=== PATIENT | male | born 1975 | race Hispanic/Latino ===

== ENCOUNTER 2019-05-13 01:20 | Emergency (ER) | payer BC, OTHER ==
--- NOTE | 2019-05-13 01:37 | EDM.PDOC ---
ED HPI GENERAL MEDICAL PROBLEM - General Chief Complaint: Chest Pain Stated Complaint: CHEST PAIN Time Seen by Provider: 05/13/19 01:32 - History of Present Illness INITIAL COMMENTS - FREE TEXT/NARRATIVE: HISTORY AND PHYSICAL: History of present illness: Patient 44-year-old male with history of hypertension who is currently not on medication or sensory concern of chest pain this is substernal cytotoxin hour prior to arrival he's had no associated shortness of breath nausea vomiting diaphoresis on arrival patient's blood pressure 213/140. He denies history of prior [place] stroke. Denies fever chills nausea vomiting or other complaints he is a smoker Review of systems: As per history of present illness and below otherwise all systems reviewed and negative. Past medical history: As per history of present illness and as reviewed below otherwise noncontributory. Surgical history: As per history of present illness and as reviewed below otherwise noncontributory. Social history: No reported history of drug or alcohol abuse. Family history: As per history of present illness and as reviewed below otherwise noncontributory. Physical exam: HEENT: Atraumatic, normocephalic, pupils reactive, negative for conjunctival pallor or scleral icterus, mucous membranes moist, throat clear, neck supple, nontender, trachea midline. Lungs: Clear to auscultation, breath sounds equal bilaterally, chest nontender. Heart: S1S2, regular, negative for clicks, rubs, or JVD. Abdomen: Soft, nondistended, nontender. Negative for masses or hepatosplenomegaly. Negative for costovertebral tenderness. Pelvis: Stable nontender. Genitourinary: Deferred. Rectal: Deferred. Extremities: Atraumatic, negative for cords or calf pain. Neurovascular unremarkable. Neuro: Awake, alert, oriented. Cranial nerves II through XII unremarkable. Cerebellum unremarkable. Motor and sensory unremarkable throughout. Exam nonfocal. Diagnostics: CBC CMP troponin PT/INR chest x-ray EKG Therapeutics: IV O2 monitor aspirin 324 mg by mouth IV nitroglycerin drip as directed Impression: #1 chest pain #2 hypertension Definitive disposition and diagnosis as appropriate pending reevaluation and review of above. Middle Chest Pain Score (Numeric/FACES): 10 - Related Data Allergies Allergy/AdvReac Type Severity Reaction Status Date / Time No Known Allergies Allergy Verified 05/13/19 01:23 Home Meds: Home Meds . [No Known Home Meds] 05/13/19 [History] Past Medical History - Past Health History Medical/Surgical History: Denies Medical/Surgical History Psychiatric History: Reports: None - Infectious Disease History Infectious Disease History: Reports: None Social & Family History - Tobacco Use Smoking Status *Q: Current Every Day Smoker Years of Tobacco use: 35 Packs/Tins Daily: 1 - Caffeine Use Caffeine Use: Reports: None - Recreational Drug Use Recreational Drug Use: No ED ROS GENERAL - Review of Systems Review Of Systems: ROS reveals no pertinent complaints other than HPI. ED EXAM, GENERAL - Physical Exam Exam: See Below (See dictation) Course - Vital Signs Last Recorded V/S: Last Vital Signs Temp 36.3 C 05/13/19 02:27 Pulse 102 H 05/13/19 02:27 Resp 20 05/13/19 02:27 BP 189/133 H 05/13/19 02:27 Pulse Ox 94 L 05/13/19 02:27 - Orders/Labs/Meds Orders: Active Orders 24 hr Category Date Time Status EKG 12 Lead [EKG Documentation Completion] [RC] STAT Care 05/13/19 02:17 Active EKG Documentation Completion [RC] STAT Care 05/13/19 01:39 Active UA RFX DORINA AND CULT IF INDIC [URIN] Stat Lab 05/13/19 02:26 Received Nitroglycerin/D5W [Nitroglycerin 25 MG/D5W 250 ML] Med 05/13/19 01:45 Active 25 mg in 250 ml IV TITRATE Sodium Chloride 0.9% [Normal Saline] 1,000 ml Med 05/13/19 01:43 Active IV STAT Saline Lock Insert [OM.PC] Stat Oth 05/13/19 01:39 Ordered Medication Orders Nitroglycerin/Dextrose (Nitroglycerin 25 Mg/D5w 250 Ml) 25 mg in 250 mls @ 6 mls/hr IV TITRATE VERONICA Last Infusion: 05/13/19 02:33 Dose: 30 mcg/min, 18 mls/hr Infusion: 05/13/19 02:10 Dose: 20 mcg/min, 12 mls/hr Admin: 05/13/19 01:58 Dose: 10 mcg/min, 6 mls/hr Sodium Chloride (Normal Saline) 1,000 mls @ 125 mls/hr IV STAT ONE Stop: 05/13/19 09:42 Last Admin: 05/13/19 01:50 Dose: 125 mls/hr Labs: Laboratory Tests 05/13/19 05/13/19 05/13/19 Range/Units 01:23 01:23 01:23 WBC 13.33 H (4.0-11.0) K/uL RBC 6.42 H (4.50-5.90) M/uL Hgb 19.0 H (13.0-17.0) g/dL Hct 54.3 H (38.0-50.0) % MCV 84.6 (80.0-98.0) fL MCH 29.6 (27.0-32.0) pg MCHC 35.0 (31.0-37.0) g/dL RDW Std Deviation 42.7 (28.0-62.0) fl RDW Coeff of Juan 14 (11.0-15.0) % Plt Count 293 (150-400) K/uL MPV 9.60 (7.40-12.00) fL Neut % (Auto) 59.7 (48.0-80.0) % Lymph % (Auto) 24.0 (16.0-40.0) % [place] % (Auto) 11.8 (0.0-15.0) % Eos % (Auto) 4.0 (0.0-7.0) % Baso % (Auto) 0.5 (0.0-1.5) % Neut # (Auto) 8.0 H (1.4-5.7) K/uL Lymph # (Auto) 3.2 H (0.6-2.4) K/uL [place] # (Auto) 1.6 H (0.0-0.8) K/uL Eos # (Auto) 0.5 (0.0-0.7) K/uL Baso # (Auto) 0.1 (0.0-0.1) K/uL Nucleated RBC % 0.0 /100WBC Nucleated RBCs # 0 K/uL INR 0.96 Sodium 138 (136-148) mmol/L Potassium 4.0 (3.5-5.1) mmol/L Chloride 103 (98-107) mmol/L Carbon Dioxide 22.4 (21.0-32.0) mmol/L BUN 20 H (7.0-18.0) mg/dL Creatinine 1.2 (0.8-1.3) mg/dL Est Cr Clr Drug Dosing 61.91 mL/min Estimated GFR (MDRD) > 60.0 ml/min Glucose 128 H (74-106) mg/dL Calcium 9.3 (8.5-10.1) mg/dL Total Bilirubin 0.3 (0.2-1.0) mg/dL AST 35 (15-37) IU/L ALT 51 (14-63) IU/L Alkaline Phosphatase 154 H (46-116) U/L Troponin I 0.954 H* (0.000-0.056) ng/mL Total Protein 7.3 (6.4-8.2) g/dL Albumin 3.3 L (3.4-5.0) g/dL Globulin 4.0 (2.6-4.0) g/dL Albumin/Globulin Ratio 0.8 L (0.9-1.6) Meds: Medications Generic Name Dose Route Start Last Admin Trade Name Freq PRN Reason Stop Dose Admin Nitroglycerin/Dextrose 25 mg in 250 mls @ 6 mls/hr 05/13/19 01:45 05/13/19 02 :33 Nitroglycerin 25 Mg/D5w 250 Ml IV 30 mcg/min TITRATE VERONICA 18 mls/hr Infusion 10 MCG/MIN Sodium Chloride 1,000 mls @ 125 mls/hr 05/13/19 01:43 05/13/19 01:50 Normal Saline IV 05/13/19 09:42 125 mls/hr STAT ONE Administration Discontinued Medications Generic Name Dose Route Start Last Admin Trade Name Freq PRN Reason Stop Dose Admin Aspirin 324 mg 05/13/19 01:39 05/13/19 01:50 Aspirin PO 05/13/19 01:40 324 mg ONETIME ONE Administration Sodium Chloride 1,000 mls @ 125 mls/hr 05/13/19 01:45 Normal Saline IV ASDIRECTED VERONICA Nitroglycerin/Dextrose Confirm 05/13/19 01:53 05/13/19 01:59 Nitroglycerin 25 Mg/D5w 250 Ml Administered 05/13/19 01:54 Not Given Dose 25 mg in 250 mls @ as directed .ROUTE .STK-MED ONE Morphine Sulfate 2 mg 05/13/19 01:39 05/13/19 01:51 Morphine IVPUSH 05/13/19 01:40 2 mg ONETIME ONE Administration Morphine Sulfate 2 mg 05/13/19 02:17 05/13/19 02:19 Morphine IVPUSH 05/13/19 02:18 2 mg ONETIME ONE Administration Morphine Sulfate Confirm 05/13/19 02:18 05/13/19 02:32 Morphine Administered 05/13/19 02:19 Not Given Dose 2 mg .ROUTE .STK-MED ONE Ondansetron HCl Confirm 05/13/19 01:46 05/13/19 01:52 Zofran Administered 05/13/19 01:47 Not Given Dose 4 mg .ROUTE .STK-MED ONE Ondansetron HCl 4 mg 05/13/19 01:46 05/13/19 01:50 Zofran IVPUSH 05/13/19 01:47 4 mg ONETIME ONE Administration Departure - Departure Time of Disposition: 02:34 Disposition: DC/Tfer to Acute Hospital 02 Condition: Serious Clinical Impression: Acute coronary syndrome - Discharge Information Referrals: PCP,None [Primary Care Provider] - Forms: ED Department Discharge - My Orders Last 24 Hours: My Active Orders 05/13/19 01:39 EKG Documentation Completion [RC] STAT Saline Lock Insert [OM.PC] Stat 05/13/19 01:43 Sodium Chloride 0.9% [Normal Saline] 1,000 ml IV STAT 05/13/19 01:45 Nitroglycerin/D5W [Nitroglycerin 25 MG/D5W 250 ML] 25 mg in 250 ml IV TITRATE 05/13/19 02:17 EKG 12 Lead [EKG Documentation Completion] [RC] STAT 05/13/19 02:26 UA RFX DORINA AND CULT IF INDIC [URIN] Stat - Assessment/Plan Last 24 Hours: My Active Orders 05/13/19 01:39 EKG Documentation Completion [RC] STAT Saline Lock Insert [OM.PC] Stat 05/13/19 01:43 Sodium Chloride 0.9% [Normal Saline] 1,000 ml IV STAT 05/13/19 01:45 Nitroglycerin/D5W [Nitroglycerin 25 MG/D5W 250 ML] 25 mg in 250 ml IV TITRATE 05/13/19 02:17 EKG 12 Lead [EKG Documentation Completion] [RC] STAT 05/13/19 02:26 UA RFX DORINA AND CULT IF INDIC [URIN] Stat
[2019-05-13] MEDS ORDERED: Morphine 2 MG/ML Syringe IVPUSH ONE ×2 (01:39→02:17)
[2019-05-13] MEDS ORDERED: Aspirin 81 MG Tab.Chew PO ONE (01:39)
[2019-05-13] MEDS ORDERED: Sodium Chloride 0.9% 1,000 ML IV ONE (01:43)
[2019-05-13] MEDS ORDERED: Sodium Chloride 0.9% 1,000 ML IV SCH (01:45)
[2019-05-13] MEDS ORDERED: Nitroglycerin/D5W 25 MG/250 ML BOTTLE IV SCH (01:45)
[2019-05-13] MEDS ORDERED: Ondansetron 4 MG/2 ML SDV ONE (01:46)
[2019-05-13] MEDS ORDERED: Ondansetron 4 MG/2 ML SDV IVPUSH ONE (01:46)
[2019-05-13] MEDS ORDERED: Nitroglycerin/D5W 25 MG/250 ML BOTTLE ONE (01:53)
--- NOTE | 2019-05-13 01:55 | CR ---
INDICATION: Chest pain TECHNIQUE: Chest 1 view COMPARISON: None FINDINGS: Cardiovascular and mediastinum: Upper normal heart size with mild aortic tortuosity. Lungs and pleural spaces: Lungs are clear. No sign of infiltrate or mass. No sign of pleural effusion. No pneumothorax. Bones and soft tissues: No significant findings. IMPRESSION: No acute or significant findings. Dictated by Elias Kelley MD @ May 13 2019 1:54AM Signed by Dr. Elias Kelley @ May 13 2019 1:54AM
[2019-05-13 02:14] LABS: BLOOD UREA NITROGEN,BUN 20 mg/dL (7.0-18.0); CARBON DIOXIDE,CO2 22.4 mmol/L (21.0-32.0); CHLORIDE,CL 103 mmol/L (98-107); GLUCOSE RANDOM 128 mg/dL (74-106); SODIUM,NA 138 mmol/L (136-148)
[2019-05-13] MEDS ORDERED: Morphine 2 MG/ML Syringe ONE (02:18)
== END 2019-05-13 03:18 ==
LOC: MW.ED 01:20
DX: I24.9 Acute ischemic heart disease, unspecified (principal); I10 Essential (primary) hypertension; F17.210 Nicotine dependence, cigarettes, uncomplicated
CPT/HCPCS: 36415; 71045; 80053; 81003; 84484; 85025; 85610; 93005; 96365; 96374; 96375; 99285; A9270; J2270; J2405; J3490; J7040

== ENCOUNTER 2019-09-01 20:56 | Emergency (ER) | payer BC ==
[2019-09-01] MEDS ORDERED: Albuterol/Ipratropium 3.0-0.5 MG/3 ML Neb Soln NEB ONE (21:03)
[2019-09-01] MEDS ORDERED: Sodium Chloride 0.9% 1,000 ML IV ONE (21:03)
--- NOTE | 2019-09-01 21:17 | EDM.PDOC ---
ED HPI GENERAL MEDICAL PROBLEM - General Chief Complaint: General Stated Complaint: TROUBLE BREATHING/DIZZINESS Time Seen by Provider: 09/01/19 21:16 Source of Information: Reports: Patient - History of Present Illness INITIAL COMMENTS - FREE TEXT/NARRATIVE: HISTORY AND PHYSICAL: History of present illness: [Patient presents with lightheaded sensation, after taking his medication he did check his blood pressure at home and in EMS reading 90/60 however he states this has been his usual blood pressure since starting medication, his last visit on file he was here with chest pain quite elevated blood pressure and elevated troponin resulting in stent placed in mind that Currently he is asymptomatic no fever nausea vomiting chills sweats no chest pain shortness breath headache dizziness palpitation no bowel or urine symptoms lightheaded sensation resolved prior to arrival ] Review of systems: As per history of present illness and below otherwise all systems reviewed and negative. Past medical history: As per history of present illness and as reviewed below otherwise noncontributory. Surgical history: As per history of present illness and as reviewed below otherwise noncontributory. Social history: No reported history of drug or alcohol abuse. Family history: As per history of present illness and as reviewed below otherwise noncontributory. Physical exam: HEENT: Atraumatic, normocephalic, pupils reactive, negative for conjunctival pallor or scleral icterus, mucous membranes moist, throat clear, neck supple, nontender, trachea midline. Lungs: Clear to auscultation, breath sounds equal bilaterally, chest nontender. Heart: S1S2, regular, negative for clicks, rubs, or JVD. Abdomen: Soft, nondistended, nontender. Negative for masses or hepatosplenomegaly. Negative for costovertebral tenderness. Pelvis: Stable nontender. Genitourinary: Deferred. Rectal: Deferred. Extremities: Atraumatic, negative for cords or calf pain. Neurovascular unremarkable. Neuro: Awake, alert, oriented. Cranial nerves II through XII unremarkable. Cerebellum unremarkable. Motor and sensory unremarkable throughout. Exam nonfocal. Diagnostics: [CBC CMP UA troponin EKG Chest 1 view ] Therapeutics: [ normal saline Aspirin Follow-up with Dr. Estes to follow renal function and possible medication adjustment ] Impression: Dehydration Renal insufficiency [ lightheaded/dizzy resolved history of hypertension ] Chronic history of baseline of recent stenting back in May Definitive disposition and diagnosis as appropriate pending reevaluation and review of above. Treatments POST PARTUM NURSE: Reports: IV/IO - Related Data Allergies Allergy/AdvReac Type Severity Reaction Status Date / Time No Known Allergies Allergy Verified 09/01/19 20:59 Home Meds: Home Meds Lisinopril [Prinivil] 0 mg PO DAILY 09/01/19 [History] Metoprolol Succinate [Toprol Xl] 0 mg PO DAILY 09/01/19 [History] Ticagrelor [Brilinta] 0 mg PO DAILY 09/01/19 [History] Past Medical History - Past Health History Medical/Surgical History: Denies Medical/Surgical History Cardiovascular History: Reports: Hypertension Psychiatric History: Reports: None Endocrine/Metabolic History: Reports: Diabetes, Type II - Infectious Disease History Infectious Disease History: Reports: None Social & Family History - Family History Family Medical History: Noncontributory - Tobacco Use Smoking Status *Q: Current Every Day Smoker Years of Tobacco use: 20 Packs/Tins Daily: 1 - Caffeine Use Caffeine Use: Reports: None - Recreational Drug Use Recreational Drug Use: No ED ROS GENERAL - Review of Systems Review Of Systems: See Below ED EXAM, GENERAL - Physical Exam Exam: See Below Course - Vital Signs Last Recorded V/S: Last Vital Signs Temp 96.5 F 09/01/19 20:56 Pulse 99 09/01/19 21:14 Resp 18 09/01/19 21:14 BP 117/73 09/01/19 21:14 Pulse Ox 97 09/01/19 21:14 - Orders/Labs/Meds Orders: Active Orders 24 hr Category Date Time Status EKG Documentation Completion [RC] STAT Care 09/01/19 21:03 Active RT Aerosol Therapy [RC] ASDIRECTED Care 09/01/19 21:04 Active Labs: Laboratory Tests 09/01/19 09/01/19 09/01/19 Range/Units 21:14 21:14 21:30 WBC 12.76 H (4.0-11.0) K/uL RBC 4.57 (4.50-5.90) M/uL Hgb 13.6 (13.0-17.0) g/dL Hct 40.5 (38.0-50.0) % MCV 88.6 (80.0-98.0) fL MCH 29.8 (27.0-32.0) pg MCHC 33.6 (31.0-37.0) g/dL RDW Std Deviation 48.6 (28.0-62.0) fl RDW Coeff of Juan 15 (11.0-15.0) % Plt Count 296 (150-400) K/uL MPV 8.70 (7.40-12.00) fL Neut % (Auto) 69.5 (48.0-80.0) % Lymph % (Auto) 19.0 (16.0-40.0) % [place] % (Auto) 7.4 (0.0-15.0) % Eos % (Auto) 3.8 (0.0-7.0) % Baso % (Auto) 0.3 (0.0-1.5) % Neut # (Auto) 8.9 H (1.4-5.7) K/uL Lymph # (Auto) 2.4 (0.6-2.4) K/uL [place] # (Auto) 0.9 H (0.0-0.8) K/uL Eos # (Auto) 0.5 (0.0-0.7) K/uL Baso # (Auto) 0.0 (0.0-0.1) K/uL Nucleated RBC % 0.0 /100WBC Nucleated RBCs # 0 K/uL Lactate (0.20-2.00) mmol/L Sodium 135 L (136-148) mmol/L Potassium 3.8 (3.5-5.1) mmol/L Chloride 101 (98-107) mmol/L Carbon Dioxide 19.7 L (21.0-32.0) mmol/L BUN 26 H (7.0-18.0) mg/dL Creatinine 1.5 H (0.8-1.3) mg/dL Est Cr Clr Drug Dosing 49.52 mL/min Estimated GFR (MDRD) 50.4 ml/min Glucose 108 H (74-106) mg/dL Calcium 8.3 L (8.5-10.1) mg/dL Total Bilirubin 0.3 (0.2-1.0) mg/dL AST 33 (15-37) IU/L ALT 47 (14-63) IU/L Alkaline Phosphatase 95 (46-116) U/L Troponin I < 0.050 (0.000-0.056) ng/mL Total Protein 6.7 (6.4-8.2) g/dL Albumin 3.1 L (3.4-5.0) g/dL Globulin 3.6 (2.6-4.0) g/dL Albumin/Globulin Ratio 0.9 (0.9-1.6) Urine Color YELLOW Urine Appearance CLEAR Urine pH 6.0 (5.0-8.0) Ur Specific [place] >= 1.030 (1.001-1.035) Urine Protein NEGATIVE (NEGATIVE) mg/dL Urine Glucose (UA) NEGATIVE (NEGATIVE) mg/dL Urine Ketones NEGATIVE (NEGATIVE) mg/dL Urine Occult Blood NEGATIVE (NEGATIVE) Urine Nitrite NEGATIVE (NEGATIVE) Urine Bilirubin NEGATIVE (NEGATIVE) Urine Urobilinogen 0.2 (<2.0) EU/dL Ur Leukocyte Esterase NEGATIVE (NEGATIVE) 09/01/19 Range/Units 21:36 WBC (4.0-11.0) K/uL RBC (4.50-5.90) M/uL Hgb (13.0-17.0) g/dL Hct (38.0-50.0) % MCV (80.0-98.0) fL MCH (27.0-32.0) pg MCHC (31.0-37.0) g/dL RDW Std Deviation (28.0-62.0) fl RDW Coeff of Juan (11.0-15.0) % Plt Count (150-400) K/uL MPV (7.40-12.00) fL Neut % (Auto) (48.0-80.0) % Lymph % (Auto) (16.0-40.0) % [place] % (Auto) (0.0-15.0) % Eos % (Auto) (0.0-7.0) % Baso % (Auto) (0.0-1.5) % Neut # (Auto) (1.4-5.7) K/uL Lymph # (Auto) (0.6-2.4) K/uL [place] # (Auto) (0.0-0.8) K/uL Eos # (Auto) (0.0-0.7) K/uL Baso # (Auto) (0.0-0.1) K/uL Nucleated RBC % /100WBC Nucleated RBCs # K/uL Lactate 2.5 H* (0.20-2.00) mmol/L Sodium (136-148) mmol/L Potassium (3.5-5.1) mmol/L Chloride (98-107) mmol/L Carbon Dioxide (21.0-32.0) mmol/L BUN (7.0-18.0) mg/dL Creatinine (0.8-1.3) mg/dL Est Cr Clr Drug Dosing mL/min Estimated GFR (MDRD) ml/min Glucose (74-106) mg/dL Calcium (8.5-10.1) mg/dL Total Bilirubin (0.2-1.0) mg/dL AST (15-37) IU/L ALT (14-63) IU/L Alkaline Phosphatase (46-116) U/L Troponin I (0.000-0.056) ng/mL Total Protein (6.4-8.2) g/dL Albumin (3.4-5.0) g/dL Globulin (2.6-4.0) g/dL Albumin/Globulin Ratio (0.9-1.6) Urine Color Urine Appearance Urine pH (5.0-8.0) Ur Specific [place] (1.001-1.035) Urine Protein (NEGATIVE) mg/dL Urine Glucose (UA) (NEGATIVE) mg/dL Urine Ketones (NEGATIVE) mg/dL Urine Occult Blood (NEGATIVE) Urine Nitrite (NEGATIVE) Urine Bilirubin (NEGATIVE) Urine Urobilinogen (<2.0) EU/dL Ur Leukocyte Esterase (NEGATIVE) Meds: Medications Discontinued Medications Generic Name Dose Route Start Last Admin Trade Name Isael PRN Reason Stop Dose Admin Albuterol/Ipratropium 3 ml 09/01/19 21:03 09/01/19 21:15 Duoneb 3.0-0.5 Mg/3 Ml NEB 09/01/19 21:04 Not Given ONETIME ONE Aspirin 324 mg 09/01/19 21:21 09/01/19 21:28 Aspirin PO 09/01/19 21:22 324 mg ONETIME ONE Administration Sodium Chloride 1,000 mls @ 999 mls/hr 09/01/19 21:03 09/01/19 21:13 Normal Saline IV 09/01/19 22:03 999 mls/hr STAT ONE Administration Departure - Departure Time of Disposition: 22:07 Disposition: Home, Self-Care 01 Condition: Good Clinical Impression: Dehydration - Discharge Information Referrals: Luke Estes MD [Primary Care Provider] - Forms: ED Department Discharge Additional Instructions: Fluid hydration as discussed Continue current medications however follow-up with Dr. Estes is discussed to repeat lab/recheck renal function occasion adjustment may be required Return if symptoms persist or worsen The following information is given to patients seen in the emergency department who are being discharged to home. This information is to outline your options for follow-up care. We provide all patients seen in our emergency department with a follow-up referral. The need for follow-up, as well as the timing and circumstances, are variable depending upon the specifics of your emergency department visit. If you don't have a primary care physician on staff, we will provide you with a referral. We always advise you to contact your personal physician following an emergency department visit to inform them of the circumstance of the visit and for follow-up with them and/or the need for any referrals to a consulting specialist. The emergency department will also refer you to a specialist when appropriate. This referral assures that you have the opportunity for follow-up care with a specialist. All of these measure are taken in an effort to provide you with optimal care, which includes your follow-up. Under all circumstances we always encourage you to contact your private physician who remains a resource for coordinating your care. When calling for follow-up care, please make the office aware that this follow-up is from your recent emergency room visit. If for any reason you are refused follow-up, please contact the [facility] emergency department at and asked to speak to the emergency department charge nurse. - My Orders Last 24 Hours: My Active Orders 09/01/19 21:03 EKG Documentation Completion [RC] STAT 09/01/19 21:04 RT Aerosol Therapy [RC] ASDIRECTED - Assessment/Plan Last 24 Hours: My Active Orders 09/01/19 21:03 EKG Documentation Completion [RC] STAT 09/01/19 21:04 RT Aerosol Therapy [RC] ASDIRECTED
[2019-09-01] MEDS ORDERED: Aspirin 81 MG Tab.Chew PO ONE (21:21)
--- NOTE | 2019-09-01 21:37 | CR ---
INDICATION: Weakness and dizziness. TECHNIQUE: AP portable upright chest 5 hours. COMPARISON: 05/13/2019. FINDINGS: The lungs are clear without pneumothorax. Normal heart size and pulmonary vascular pattern with no pleural effusions. The thoracic aorta is tortuous. Mild ectasia of the aortic arch is unchanged. IMPRESSION: No acute radiographic chest finding. Dictated by Kevin Reed MD @ Sep 01 2019 9:34PM Signed by Dr. Kevin Reed @ Sep 01 2019 9:36PM
[2019-09-01 21:40] LABS: BLOOD UREA NITROGEN,BUN 26 mg/dL (7.0-18.0); CARBON DIOXIDE,CO2 19.7 mmol/L (21.0-32.0); CHLORIDE,CL 101 mmol/L (98-107); GLUCOSE RANDOM 108 mg/dL (74-106); POTASSIUM,K 3.8 mmol/L (3.5-5.1); SODIUM,NA 135 mmol/L (136-148)
== END 2019-09-01 22:40 | disposition home or self-care (01) ==
LOC: MW.ED 20:56
DX: E86.0 Dehydration (principal); N28.9 Disorder of kidney and ureter, unspecified; I10 Essential (primary) hypertension; E11.9 Type 2 diabetes mellitus without complications; F17.210 Nicotine dependence, cigarettes, uncomplicated; Z79.899 Other long term (current) drug therapy
CPT/HCPCS: 36415; 71045; 80053; 81003; 83605; 84484; 85025; 93005; 96360; 99284; A9270; J7040

== ENCOUNTER 2024-06-04 21:15 | Emergency (ER) | payer BC, OTHER ==
[2024-06-04 21:48] LABS: BASOPHILS ABSOLUTE AUTO 0.06 K/uL (0.00-0.20); BASOPHILS PERCENT AUTO 0.3 % (0.0-1.0); EOSINOPHILS ABSOLUTE AUTO 0.27 K/uL (0.00-0.45); EOSINOPHILS PERCENT AUTO 1.4 % (0.0-6.0); HEMATOCRIT 32.9 % (42.0-52.0); HEMOGLOBIN 11.2 g/dL (14.0-18.0); IMMATURE GRAN ABSOLUTE AUTO 0.19 K/uL (0.00-0.05); LYMPHOCYTES ABSOLUTE AUTO 1.97 K/uL (1.00-4.80); MEAN CORPUSCULAR VOLUME 85.2 fL (83.0-99.0); MONOCYTES ABSOLUTE AUTO 1.34 K/uL (0.00-0.80); MONOCYTES PERCENT AUTO 6.8 % (0.0-8.0); NEUTROPHILS ABSOLUTE AUTO 15.89 K/uL (1.80-7.70); NEUTROPHILS PERCENT AUTO 80.5 % (41.0-71.0); PLATELET COUNT,PLT 238 K/uL (150-400); RED BLOOD CELL COUNT 3.86 M/uL (4.52-5.90); WHITE BLOOD CELL COUNT,WBC 19.72 K/uL (3.9-11.3)
[2024-06-04] MEDS: Sodium Chloride 0.9% 1,000 ML IV ONE (21:52)
[2024-06-04] MEDS: Sodium Chloride 0.9% 10 ML Syringe FLUSH PRN (21:52)
[2024-06-04] MEDS: Sodium Chloride 0.9% 2.5 ML Syringe FLUSH PRN (21:53)
[2024-06-04] MEDS: fentaNYL 50 MCG/ML SDV IVPUSH ONE ×3 (22:02→23:56)
[2024-06-04 22:09] LABS: A/G RATIO 0.7 (0.9-1.6); ALBUMIN 2.1 g/dL (3.4-5.0); BILIRUBIN TOTAL 0.6 mg/dL (0.2-1.0); CALCIUM 7.8 mg/dL (8.5-10.1); CREATININE 1.5 mg/dL (0.8-1.3); EST CRCL DRUG DOSING (CG) 46.89 mL/min; POTASSIUM,K 3.5 mmol/L (3.5-5.1); PROTEIN TOTAL,TP 5.1 g/dL (6.4-8.2)
[2024-06-04 22:13] LABS: INR 1.09 (0.86-1.11); PTT,PARTIAL THROMBOPLSTIN TIME 26.9 SEC (23.9-30.7)
[2024-06-04] MEDS: Iopamidol 755 MG/ML 500 ML Multipack Bottle IVPUSH ONE (22:15)
[2024-06-04] MEDS: Ketorolac 60 MG/2 ML SDV IVPUSH ONE (22:29)
[2024-06-04] MEDS: Morphine 4 MG/ML Syringe IVPUSH ONE (22:29)
[2024-06-04] MEDS: Ondansetron 4 MG/2 ML SDV IVPUSH ONE (22:32)
[2024-06-04] MEDS ORDERED: Esmolol 2,500 MG in Sodium Chloride 0.9% 250 ML IV SCH (23:00)
[2024-06-04] MEDS ORDERED: ESMOLOL HCL IV ONE (23:10)
[2024-06-04] MEDS ORDERED: STERILE WATER IV ONE (23:10)
[2024-06-05] MEDS ORDERED: ESMOLOL IV ONE (00:34)
[2024-06-05] MEDS ORDERED: [UNRECOGNIZED DRUG - OTHER] IV ONE (00:34)
[2024-06-05] MEDS ORDERED: ESMOLOL HCL IV ONE (00:34)
[2024-06-05] MEDS ORDERED: STERILE WATER IV ONE (00:34)
[2024-06-05] MEDS ORDERED: Sodium Chloride 0.9% 1,000 ML IV ONE (00:34)
[2024-06-05] MEDS: Sodium Chloride 0.9% 1,000 ML IV STA (03:56)
== END 2024-06-05 00:45 ==
LOC: MW.ED 21:15
DX: I71.30 Abdominal aortic aneurysm, ruptured, unspecified (principal); I10 Essential (primary) hypertension; E11.9 Type 2 diabetes mellitus without complications; Z95.5 Presence of coronary angioplasty implant and graft; Z79.899 Other long term (current) drug therapy; Z75.8 Other problems related to medical facilities and other health care
CPT/HCPCS: 36415; 71275; 74174; 80053; 84484; 85025; 85610; 85730; 86850; 86900; 86901; 93005; 96361; 96374; 96375; 96376; 99285; J2405; J3010; J3490; J7030; Q9967; 93010

== ENCOUNTER 2024-10-08 14:48 | Emergency (ER) | payer OTHER ==
[2024-10-08] MEDS: Acetaminophen/Codeine 300-30 MG Tab PO ONE (16:11)
[2024-10-08] MEDS: Acetaminophen 500 MG Tab PO ONE (16:20)
[2024-10-08] MEDS: Sodium Chloride 0.9% 1,000 ML IV ONE (16:21)
[2024-10-08 16:32] LABS: BASOPHILS ABSOLUTE AUTO 0.06 K/uL (0.00-0.20); BASOPHILS PERCENT AUTO 0.4 % (0.0-1.0); EOSINOPHILS ABSOLUTE AUTO 0.09 K/uL (0.00-0.45); EOSINOPHILS PERCENT AUTO 0.6 % (0.0-6.0); HEMATOCRIT 45.4 % (42.0-52.0); HEMOGLOBIN 15.3 g/dL (14.0-18.0); IMMATURE GRAN ABSOLUTE AUTO 0.08 K/uL (0.00-0.05); IMMATURE GRAN PERCENT AUTO 0.6 % (0.0-0.4); LYMPHOCYTES ABSOLUTE AUTO 0.82 K/uL (1.00-4.80); LYMPHOCYTES PERCENT AUTO 5.8 % (24.0-44.0); MEAN CORPUSCULAR HEMOGLOBIN 27.5 pg (28.0-32.0); MEAN CORPUSCULAR HGB CONC 33.7 g/dL (32.0-36.0); MEAN CORPUSCULAR VOLUME 81.5 fL (83.0-99.0); MEAN PLATELET VOLUME 8.7 fL (9.4-12.4); MONOCYTES ABSOLUTE AUTO 1.46 K/uL (0.00-0.80); MONOCYTES PERCENT AUTO 10.3 % (0.0-8.0); NEUTROPHILS ABSOLUTE AUTO 11.62 K/uL (1.80-7.70); NEUTROPHILS PERCENT AUTO 82.3 % (41.0-71.0); PLATELET COUNT,PLT 231 K/uL (150-400); RED BLOOD CELL COUNT 5.57 M/uL (4.52-5.90); WHITE BLOOD CELL COUNT,WBC 14.13 K/uL (3.9-11.3)
[2024-10-08 16:49] LABS: LACTIC ACID 1.8 mmol/L (0.4-2.0)
[2024-10-08 16:58] LABS: A/G RATIO 0.6 (0.9-1.6); ALBUMIN 2.4 g/dL (3.4-5.0); BILIRUBIN TOTAL 0.4 mg/dL (0.2-1.0); CALCIUM 8.2 mg/dL (8.5-10.1); CARBON DIOXIDE,CO2 23.7 mmol/L (21.0-32.0); CREATININE 1.6 mg/dL (0.8-1.3); EST CRCL DRUG DOSING (CG) 45.74 mL/min; POTASSIUM,K 3.9 mmol/L (3.5-5.1); PROTEIN TOTAL,TP 6.6 g/dL (6.4-8.2)
[2024-10-08] MEDS: Ibuprofen 600 MG Tab PO ONE (18:37)
[2024-10-08 21:00] LABS: BILIRUBIN,URINE NEGATIVE (NEGATIVE); COLOR,URINE YELLOW; GLUCOSE,URINE NEGATIVE (NEGATIVE); KETONES,URINE NEGATIVE (NEGATIVE); LEUKOCYTE ESTERASE,URINE SMALL (NEGATIVE); NITRITE,URINE NEGATIVE (NEGATIVE); OCCULT BLOOD,URINE SMALL (NEGATIVE); PROTEIN,URINE TRACE mg/dL (NEGATIVE); UROBILINOGEN,URINE 0.2 EU/dL (<2.0)
[2024-10-08 21:15] LABS: APPEARANCE,URINE SLT CLOUDY
[2024-10-08 21:16] LABS: BACTERIA,URINE 1+ (NEGATIVE); EPITHELIAL CELLS,URINE FEW (NONE-FEW); WBC,URINE 20-30 (0-5/HPF)
[2024-10-08] MEDS: Ampicillin/Sulbactam Na 3 GM in Sodium Chloride 0.9% 100 ML IV ONE (22:02)
[2024-10-08] MEDS: Dexamethasone 4 MG/ML SDV IVPUSH ONE (22:02)
== END 2024-10-08 22:39 | disposition home or self-care (01) ==
LOC: MW.ED 14:48
DX: J32.9 Chronic sinusitis, unspecified (principal); N39.0 Urinary tract infection, site not specified; I10 Essential (primary) hypertension; E11.9 Type 2 diabetes mellitus without complications; Z79.899 Other long term (current) drug therapy; Z79.82 Long term (current) use of aspirin; Z88.8 Allergy status to other drugs, medicaments and biological substances; Z75.8 Other problems related to medical facilities and other health care
CPT/HCPCS: 36415; 71045; 80053; 81001; 83605; 85025; 87040; 87077; 87086; 87088; 87186; 87428; 93005; 96361; 96365; 96375; 99284; A9270; J0295; J1100; J3490; J7030

== ENCOUNTER 2024-10-09 13:57 | Inpatient (IN) | payer OTHER ==
[2024-10-09] MEDS: Sodium Chloride 0.9% 1,000 ML IV ONE ×3 (14:57→23:04)
[2024-10-09] MEDS: Piperacillin/Tazobactam 4.5 GM in Sodium Chloride 0.9% 100 ML IV ONE (14:58)
[2024-10-09] MEDS: Sodium Chloride 0.9% 2.5 ML Syringe FLUSH PRN (14:58)
[2024-10-09] MEDS: Sodium Chloride 0.9% 10 ML Syringe FLUSH PRN (14:58)
[2024-10-09 15:05] LABS: HEMATOCRIT 43.2 % (42.0-52.0); HEMOGLOBIN 14.4 g/dL (14.0-18.0); MEAN CORPUSCULAR HEMOGLOBIN 27.2 pg (28.0-32.0); MEAN CORPUSCULAR HGB CONC 33.3 g/dL (32.0-36.0); MEAN CORPUSCULAR VOLUME 81.5 fL (83.0-99.0); MEAN PLATELET VOLUME 8.7 fL (9.4-12.4); PLATELET COUNT,PLT 251 K/uL (150-400); WHITE BLOOD CELL COUNT,WBC 17.23 K/uL (3.9-11.3)
[2024-10-09 15:21] LABS: A/G RATIO 0.6 (0.9-1.6); ALBUMIN 2.5 g/dL (3.4-5.0); BILIRUBIN TOTAL 0.2 mg/dL (0.2-1.0); CALCIUM 8.8 mg/dL (8.5-10.1); CARBON DIOXIDE,CO2 25.2 mmol/L (21.0-32.0); CREATININE 1.2 mg/dL (0.8-1.3); EST CRCL DRUG DOSING (CG) 60.98 mL/min; POTASSIUM,K 4.1 mmol/L (3.5-5.1); PROTEIN TOTAL,TP 6.9 g/dL (6.4-8.2)
[2024-10-09 15:25] LABS: LACTIC ACID 1.4 mmol/L (0.4-2.0)
[2024-10-09 15:41] LABS: LYMPHOCYTES ABSOLUTE MAN 1.03 K/uL (1.00-4.80); LYMPHOCYTES PERCENT MAN 6 % (24-44); MONOCYTES ABSOLUTE MAN 1.72 K/uL (0.00-0.80); MONOCYTES PERCENT MAN 10 % (0-8); SEG NEUTROPHILS ABSOLUTE MAN 14.47 K/uL (1.80-7.70); SEG NEUTROPHILS PERCENT MAN 84 % (41-71)
[2024-10-09] MEDS: VANCOmycin 1.75 GM/350 ML 1.75 GM in Premix Bag 1 BAG IV ONE (15:50)
[2024-10-09] MEDS: Ondansetron 4 MG/2 ML SDV IVPUSH ONE (16:05)
[2024-10-09 17:31] LABS: APPEARANCE,URINE CLEAR; BILIRUBIN,URINE NEGATIVE (NEGATIVE); COLOR,URINE YELLOW; GLUCOSE,URINE NEGATIVE (NEGATIVE); KETONES,URINE NEGATIVE (NEGATIVE); LEUKOCYTE ESTERASE,URINE NEGATIVE (NEGATIVE); NITRITE,URINE NEGATIVE (NEGATIVE); OCCULT BLOOD,URINE TRACE-INTACT (NEGATIVE); PROTEIN,URINE TRACE mg/dL (NEGATIVE); UROBILINOGEN,URINE 0.2 EU/dL (<2.0)
[2024-10-09 17:39] LABS: BACTERIA,URINE RARE (NEGATIVE); EPITHELIAL CELLS,URINE OCCASIONAL (NONE-FEW); RBC,URINE 0-2 (0-2/HPF); WBC,URINE 0-5 (0-5/HPF)
[2024-10-09] MEDS ORDERED: Polyethylene Glycol 3350 Powder 17 GM Packet PO PRN (17:52)
[2024-10-09] MEDS ORDERED: Acetaminophen 325 MG Tab PO PRN (17:52)
[2024-10-09] MEDS ORDERED: Ondansetron 4 MG/2 ML SDV IVPUSH PRN (17:52)
[2024-10-09] MEDS ORDERED: Acetaminophen 650 MG Supp RECTAL PRN (17:52)
[2024-10-09] MEDS ORDERED: Sodium Chloride 0.9% 1,000 ML IV SCH ×2 (18:00→19:30)
[2024-10-09] MEDS: Piperacillin/Tazobactam 4.5 GM in Sodium Chloride 0.9% 100 ML IV SCH ×2 (19:24→20:30)
[2024-10-09] MEDS: Sodium Chloride 0.9% 1,000 ML IV SCH (20:29)
[2024-10-09] MEDS: Metoprolol Succinate 50 MG Tab.ER PO SCH (20:33)
[2024-10-10] MEDS: VANCOmycin 1.25 GM in Sodium Chloride 0.9% 250 ML IV SCH (03:08)
[2024-10-10 06:19] LABS: BASOPHILS ABSOLUTE AUTO 0.04 K/uL (0.00-0.20); BASOPHILS PERCENT AUTO 0.4 % (0.0-1.0); EOSINOPHILS ABSOLUTE AUTO 0.16 K/uL (0.00-0.45); EOSINOPHILS PERCENT AUTO 1.4 % (0.0-6.0); HEMATOCRIT 39.3 % (42.0-52.0); HEMOGLOBIN 12.9 g/dL (14.0-18.0); IMMATURE GRAN ABSOLUTE AUTO 0.04 K/uL (0.00-0.05); IMMATURE GRAN PERCENT AUTO 0.4 % (0.0-0.4); LYMPHOCYTES PERCENT AUTO 12.5 % (24.0-44.0); MEAN CORPUSCULAR HEMOGLOBIN 27.3 pg (28.0-32.0); MEAN CORPUSCULAR HGB CONC 32.8 g/dL (32.0-36.0); MEAN CORPUSCULAR VOLUME 83.1 fL (83.0-99.0); MEAN PLATELET VOLUME 9.1 fL (9.4-12.4); MONOCYTES ABSOLUTE AUTO 1.43 K/uL (0.00-0.80); MONOCYTES PERCENT AUTO 12.8 % (0.0-8.0); NEUTROPHILS ABSOLUTE AUTO 8.14 K/uL (1.80-7.70); NEUTROPHILS PERCENT AUTO 72.5 % (41.0-71.0); PLATELET COUNT,PLT 221 K/uL (150-400); RED BLOOD CELL COUNT 4.73 M/uL (4.52-5.90); WHITE BLOOD CELL COUNT,WBC 11.21 K/uL (3.9-11.3)
[2024-10-10 06:50] LABS: CARBON DIOXIDE,CO2 22.5 mmol/L (21.0-32.0); CREATININE 1.2 mg/dL (0.8-1.3); EST CRCL DRUG DOSING (CG) 58.61 mL/min; POTASSIUM,K 4.3 mmol/L (3.5-5.1); VANCOMYCIN RANDOM 34.9 ug/mL
[2024-10-10] MEDS: Rosuvastatin 10 MG Tab PO SCH (08:31)
[2024-10-10] MEDS: Aspirin 81 MG Tab.Chew PO SCH (08:31)
[2024-10-10] MEDS: Metoprolol Tartrate 50 MG Tab PO SCH (08:32)
[2024-10-10] MEDS: Lisinopril 10 MG Tab PO SCH (08:32)
[2024-10-10] MEDS: Ticagrelor 90 MG Tab PO SCH (08:32)
[2024-10-10] MEDS ORDERED: TICAGRELOR 60 MG PO SCH (09:00)
[2024-10-10] MEDS: Enoxaparin 40 MG/0.4 ML Syringe SUBCUT SCH (11:10)
[2024-10-10] MEDS: amLODIPine 5 MG Tab PO SCH (12:43)
[2024-10-10] MEDS: VANCOmycin 1 GM in Sodium Chloride 0.9% 250 ML IV SCH (13:55)
[2024-10-10] MEDS ORDERED: hydrALAZINE 20 MG/ML SDV IVPUSH PRN (16:16)
[2024-10-11 07:40] LABS: BASOPHILS ABSOLUTE AUTO 0.04 K/uL (0.00-0.20); BASOPHILS PERCENT AUTO 0.4 % (0.0-1.0); EOSINOPHILS ABSOLUTE AUTO 0.32 K/uL (0.00-0.45); EOSINOPHILS PERCENT AUTO 3.5 % (0.0-6.0); HEMATOCRIT 42.7 % (42.0-52.0); HEMOGLOBIN 14.3 g/dL (14.0-18.0); IMMATURE GRAN ABSOLUTE AUTO 0.03 K/uL (0.00-0.05); IMMATURE GRAN PERCENT AUTO 0.3 % (0.0-0.4); LYMPHOCYTES ABSOLUTE AUTO 1.12 K/uL (1.00-4.80); LYMPHOCYTES PERCENT AUTO 12.2 % (24.0-44.0); MEAN CORPUSCULAR HEMOGLOBIN 27.2 pg (28.0-32.0); MEAN CORPUSCULAR HGB CONC 33.5 g/dL (32.0-36.0); MEAN CORPUSCULAR VOLUME 81.2 fL (83.0-99.0); MEAN PLATELET VOLUME 8.4 fL (9.4-12.4); MONOCYTES ABSOLUTE AUTO 1.16 K/uL (0.00-0.80); MONOCYTES PERCENT AUTO 12.6 % (0.0-8.0); NEUTROPHILS ABSOLUTE AUTO 6.51 K/uL (1.80-7.70); PLATELET COUNT,PLT 250 K/uL (150-400); RED BLOOD CELL COUNT 5.26 M/uL (4.52-5.90); WHITE BLOOD CELL COUNT,WBC 9.18 K/uL (3.9-11.3)
[2024-10-11 09:28] LABS: CALCIUM 8.7 mg/dL (8.5-10.1); CARBON DIOXIDE,CO2 25.2 mmol/L (21.0-32.0); CREATININE 1.3 mg/dL (0.8-1.3); EST CRCL DRUG DOSING (CG) 54.1 mL/min; POTASSIUM,K 3.7 mmol/L (3.5-5.1)
== END 2024-10-11 10:50 | disposition home or self-care (01) | DRG 690 ==
LOC: MW.ED 13:57 → MW.MS 16:05
PROVIDERS: ADMIT Family Medicine; ATTEND Family Medicine
DX: N39.0 Urinary tract infection, site not specified (principal); R78.81 Bacteremia; I10 Essential (primary) hypertension; E11.9 Type 2 diabetes mellitus without complications; F17.210 Nicotine dependence, cigarettes, uncomplicated; R31.9 Hematuria, unspecified; I25.10 Atherosclerotic heart disease of native coronary artery without angina pectoris; I71.40 Abdominal aortic aneurysm, without rupture, unspecified; Z95.5 Presence of coronary angioplasty implant and graft; Z86.16 Personal history of COVID-19; Z79.82 Long term (current) use of aspirin; Z79.2 Long term (current) use of antibiotics; Z79.899 Other long term (current) drug therapy; Z88.8 Allergy status to other drugs, medicaments and biological substances
CPT/HCPCS: 36415; 71046; 71046-26; 74176; 74176-26; 80048; 80053; 80202; 81001; 83605; 83735; 85025; 87040; 87086; 96365; 96375; 99222; 99232; 99239; 99284; 99285-25; A9270-GY; J1650; J2405; J2543; J3371; J3372; J3490; J7030; J7050